=== PATIENT | male | born 1990 | race Caucasian/White ===

== ENCOUNTER 2018-05-21 09:40 | Outpatient (CLI) | payer OTHER ==
--- NOTE | 2018-05-21 14:33 | MRI ---
MRI CERVICAL SPINE: HISTORY: Cervical radiculopathy. TECHNIQUE: Multiplanar, multisequence, noncontrast enhanced MR images of the cervical spine obtained. FINDINGS: The spinal cord is unremarkable with no evidence of cord masses or lesions. C1-C2/C2-C3: Unremarkable. C3-C4: No significant degree of central stenosis or neural foraminal narrowing is seen. C4-C5: There is a mild broad-based central disk bulge, minimally but not significantly compressing t he thecal sac. The neural foramen are patent. C5-C6: A minimal broad-based central disk bulge is seen. The neural foramen are patent. C6-C7: There is a large right C6-C7 lateral recess disk extrusion. The extruded material has three- dimensional measurements of 8 x 5 x 9 mm and markedly narrows the right C6-C7 lateral recess. It als o appears to compress the exiting right C7 nerve root. C7-T1: Unremarkable. IMPRESSION: Large right C6-C7 lateral recess and neural foraminal disk extrusion. POS: [facility]
== END 2018-05-21 09:41 | disposition home or self-care (01) ==
LOC: SCSMRI 09:40
PROVIDERS: ATTEND Neurological Surgery
DX: M50.123 Cervical disc disorder at C6-C7 level with radiculopathy (principal)
CPT/HCPCS: 72141